=== PATIENT | male | born 1960 | race Caucasian/White ===

== ENCOUNTER 2022-10-19 14:19 | Inpatient (IN) ==
--- NOTE | 2022-10-19 15:56 | Emergency Department Note ---
Impression & Plan Infarction of kidney, Hernia, umbilical ED Provider Note NAME: GREGORIO MCGRATH AGE: 62 SEX: M : 1960 ARRIVES VIA: Walk-In INFORMANT: Patient, ED PROVIDER(S): Jeronimo Howard DO CHIEF COMPLAINT: Hernia HPI: The patient is a 62-year-old male who presented to the emergency department for evaluation of an umbilical hernia. The patient's had an umbilical hernia for approximately 6 months. This has been followed by his primary care physician. He was seen today for a routine diabetic visit. He was noted to have more pain than usual over his umbilical hernia. He was sent to the emergency department for imaging and possible referral to a surgeon. The patient denies having any fever nausea or vomiting. ROS: See above HPI for pertinent positives & negatives. A total of 10 systems reviewed and were otherwise negative. PAST MEDICAL HISTORY: See Below PAST SURGICAL HISTORY: See Below FAMILY HISTORY: See Below SOCIAL HISTORY: See Below HOME MEDICATIONS: See Below ALLERGIES: See Below VITALS: See Below PHYSICAL EXAMINATION: GENERAL: Patient is awake alert in no acute distress patient is resting comfortably and showing no signs of anxiety EYES: The conjunctivae are clear. The pupils are round and reactive. EARS, NOSE, MOUTH AND THROAT: The nose is without any evidence of any deformity. Mucous membranes are moist. Tongue is midline. NECK: The neck is nontender and supple. RESPIRATORY: Normal respiratory effort is noted there is no evidence of wheezing rhonchi or rales CARDIOVASCULAR: Regular rate and rhythm noted there no murmurs rubs or gallops normal S1 normal S2. GASTROINTESTINAL: The abdomen is distended. There is an umbilical hernia noted to palpation. It is easily reducible. There is no erythema overlying or incarceration to my palpation. MUSCULOSKELETAL/EXTREMITIES: There is no evidence of gross deformity full range of motion is noted in the hips and shoulders. SKIN: There is no obvious evidence of any rash. There are no petechiae, pallor or cyanosis noted. NEUROLOGIC: Patient is awake alert and oriented x3. MEDICAL DECISION MAKING: The patient is a 62-year-old male who presented to the emergency department at the request of his primary care physician for an evaluation of an ongoing umbilical hernia. The patient did not have any signs of obstruction or incarceration. The patient was sent specifically for a CAT scan. CAT scan was obtained which did appear to be consistent with a possible renal infarct. For this reason I discussed his case with nephrology who was concerned and recommended that the patient stay for further inpatient work-up to determine if there is no embolic source causing the renal infarction. The patient was agreeable this plan. I discussed his condition with the on-call [facility]. They have agreed to evaluate the patient in the emergency department. The patient was started on heparin. Triage Nursing notes reviewed. Prior medical records reviewed Vital Signs: reviewed and remarkable for no significant abnormalities Differential diagnosis: Etiologies such as appendicitis, diverticulitis, obstruction, inflammatory bowel disease, renal colic, PUD, biliary pathology, pancreatitis, mesenteric ischemia, aortic pathology, infections, genitourinary, UTI, perforated viscus, as well as others were entertained. ER treatment provided: See below Diagnostics interpreted by me: ECG: EKG was obtained in the emergency department. My interpretation is normal sinus rhythm at 77 bpm. There is no ectopy. There is no acute ST segment abnormalities noted. No previous tracing was available. Cardiac Monitoring: An order was placed for continuous cardiac monitoring. The monitor shows a rate of 72 bpm with sinus rhythm. Laboratory studies: As stated above and show below. Imaging studies: See below. Radiographic imaging was reviewed by myself Consultation(s): I discussed this case with Dr. Lang who is on for nephrology. I discussed this case with Dr. Samaniego who is on-call for the [facility] group. ED COURSE: Procedures: none Critical Care: I have personally spent greater than 45 minutes of critical care time in the direct management of this patient. This includes bedside care, interpretation of diagnostic studies, and testing, discussion with consultants, patient, and family members, and other required patient management activities. This 45 minutes is in excess of all separately billable procedures. Past Med/Surg History Medical History Diabetes Hypertension Social History Smoking Status: Never smoker Feels Safe at Home: Yes Allergies Allergies Allergy/AdvReac Type Severity Reaction Status Date / Time No Known Allergies Allergy Verified 10/19/22 18:25 Home Meds Home Medications Medication Instructions Recorded Confirmed aspirin 81 mg tablet,delayed 81 mg PO DAILY 03/01/23 03/01/23 release atorvastatin 40 mg tablet 40 mg PO HS 10/19/22 10/19/22 cyanocobalamin (vitamin B-12) 1,000 mcg sublingual DAILY 10/19/22 10/19/22 1,000 mcg sublingual tablet empagliflozin 25 mg tablet 25 mg PO DAILY 10/19/22 10/19/22 (Jardiance) furosemide 20 mg tablet 20 mg PO DAILY 10/19/22 10/19/22 glipizide 10 mg tablet, extended 20 mg PO DAILY 10/19/22 10/19/22 release 24 hr linagliptin 5 mg tablet (Tradjenta) 5 mg PO DAILY 10/19/22 10/19/22 lisinopril 20 mg tablet 20 mg PO DAILY 10/19/22 10/19/22 metformin 1,000 mg tablet 1,000 mg PO BID 10/19/22 10/19/22 multivitamin 1 tab PO DAILY 10/19/22 10/19/22 polyethylene glycol 3350 17 17 g PO DAILY PRN Constipation 10/19/22 10/19/22 gram/dose oral powder (Miralax) Results & Data (ED) Vital Signs Vital Signs - 24 hr 10/19/22 14:28 10/19/22 18:51 10/19/22 19:33 Temperature 36.7 C Temperature Source Temporal Artery Scan Pulse Rate 86 86 Pulse Rate [Right] 79 Pulse Rate from SpO2 Sensor Respiratory Rate 20 21 Respiratory Effort / Characteristics Non-Labored Spontaneous Non-Labored Respiratory Depth Normal Normal Respiratory Pattern Regular Regular Blood Pressure 180/91 H Blood Pressure [Right Arm] 146/82 H Blood Pressure Mean 120 Blood Pressure Mean [Right Arm] 103 Pulse Oximetry 92 96 Oxygen Delivery Method Room Air Room Air Sepsis Recent Fever Within 48 Hours No Sepsis New/Unexplained Change in Mental Status No Sepsis Action Taken by Nursing No Action Required 10/19/22 19:32 10/19/22 19:40 10/19/22 19:50 Temperature Temperature Source Pulse Rate 90 78 76 Pulse Rate [Right] Pulse Rate from SpO2 Sensor 89 77 76 Respiratory Rate 25 H 19 19 Respiratory Effort / Characteristics Respiratory Depth Respiratory Pattern Blood Pressure Blood Pressure [Right Arm] Blood Pressure Mean Blood Pressure Mean [Right Arm] Pulse Oximetry 93 93 94 Oxygen Delivery Method Sepsis Recent Fever Within 48 Hours Sepsis New/Unexplained Change in Mental Status Sepsis Action Taken by Nursing 10/19/22 20:00 10/19/22 20:10 10/19/22 20:20 Temperature Temperature Source Pulse Rate 77 69 74 Pulse Rate [Right] Pulse Rate from SpO2 Sensor 78 70 72 Respiratory Rate 23 21 18 Respiratory Effort / Characteristics Respiratory Depth Respiratory Pattern Blood Pressure Blood Pressure [Right Arm] Blood Pressure Mean Blood Pressure Mean [Right Arm] Pulse Oximetry 92 93 89 L Oxygen Delivery Method Sepsis Recent Fever Within 48 Hours Sepsis New/Unexplained Change in Mental Status Sepsis Action Taken by Nursing 10/19/22 20:30 10/19/22 20:40 10/19/22 20:50 Temperature Temperature Source Pulse Rate 76 78 73 Pulse Rate [Right] Pulse Rate from SpO2 Sensor 73 81 73 Respiratory Rate 26 H 17 19 Respiratory Effort / Characteristics Respiratory Depth Respiratory Pattern Blood Pressure Blood Pressure [Right Arm] Blood Pressure Mean Blood Pressure Mean [Right Arm] Pulse Oximetry 92 91 91 Oxygen Delivery Method Sepsis Recent Fever Within 48 Hours Sepsis New/Unexplained Change in Mental Status Sepsis Action Taken by Nursing 10/19/22 21:00 10/19/22 21:10 10/19/22 21:11 Temperature Temperature Source Pulse Rate 78 72 Pulse Rate [Right] Pulse Rate from SpO2 Sensor 82 73 Respiratory Rate 19 21 Respiratory Effort / Characteristics Respiratory Depth Respiratory Pattern Blood Pressure 131/74 Blood Pressure [Right Arm] Blood Pressure Mean 93 Blood Pressure Mean [Right Arm] Pulse Oximetry 93 92 Oxygen Delivery Method Sepsis Recent Fever Within 48 Hours Sepsis New/Unexplained Change in Mental Status Sepsis Action Taken by Nursing 10/19/22 21:11 Temperature Temperature Source Pulse Rate 72 Pulse Rate [Right] Pulse Rate from SpO2 Sensor 71 Respiratory Rate 22 Respiratory Effort / Characteristics Respiratory Depth Respiratory Pattern Blood Pressure Blood Pressure [Right Arm] Blood Pressure Mean Blood Pressure Mean [Right Arm] Pulse Oximetry 89 L Oxygen Delivery Method Sepsis Recent Fever Within 48 Hours Sepsis New/Unexplained Change in Mental Status Sepsis Action Taken by Half-Way Medications Current Medication List: was personally reviewed by me Laboratory Data Attestation: I reviewed the patient's lab results. 10/19/22 14:35 10/19/22 14:35 Lab Results 10/19/22 10/19/22 10/19/22 Range/Units 14:35 14:35 14:35 WBC 10.94 H (4.8-10.8) K/ul RBC 5.19 (4.70-6.10) M/uL Hgb 15.7 (14.0-18.0) g/dl Hct 46.4 (42.0-52.0) % MCV 89.4 (80.0-100.0) fL MCH 30.3 (25.0-34.0) pg MCHC 33.8 (32.0-36.0) g/dL RDW Std Deviation 41.8 (36.4-46.3) fL RDW Coeff of Noy 12.7 (11.5-14.5) % Plt Count 323 (130-400) K/uL MPV 9.8 (9.4-12.4) fL Immature Gran % (Auto) 0.6 % Neut % (Auto) 63.7 % Lymph % (Auto) 19.7 % [place] % (Auto) 11.6 % Eos % (Auto) 3.1 % Baso % (Auto) 1.3 % Neut # (Auto) 6.96 H (1.40-6.50) K/uL Lymph # (Auto) 2.16 (1.2-3.4) K/uL [place] # (Auto) 1.27 H (0.11-0.59) K/uL Eos # (Auto) 0.34 (0-0.50) K/uL Baso # (Auto) 0.14 (0-0.2) K/uL Immature Gran # (Auto) 0.07 (0.01-0.20) K/uL PT Cancelled INR Cancelled APTT Cancelled PTT Ratio Cancelled Sodium 138 (136-145) mmol/L Potassium 4.3 (3.5-5.1) mmol/L Chloride 104 (98-107) mmol/L Carbon Dioxide 26 (21-32) mmol/L Anion Gap 8 (3-11) BUN 13 (6-23) mg/dl Creatinine 0.74 (0.6-1.4) mg/dl Est Cr Clr Drug Dosing 113.2 ml/min Est GFR ( Amer) 113.8 ml/min Est GFR (Non-Af Amer) 98.2 ml/min BUN/Creatinine Ratio 17.6 (10-20) Glucose 104 H (70-99(Fasting)) mg/dl Calcium 9.9 (8.5-10.1) mg/dl Total Bilirubin 0.7 (0.2-1.0) mg/dl AST 17 (13-39) U/L ALT 20 (7-52) U/L Alkaline Phosphatase 49 (34-104) U/L Troponin I High Sens (0-20) pg/ml Total Protein 8.3 (6.0-8.3) gm/dl Albumin 4.7 (3.4-5.0) gm/dl Globulin 3.6 (2.5-4.0) gm/dl Albumin/Globulin Ratio 1.3 (0.9-2) Urine Color Urine Appearance (Clear) Urine pH (4.5-7.5) Ur Specific [place] (1.000-1.030) Urine Protein (Negative) Urine Glucose (UA) (Negative) Urine Ketones (Negative) Urine Blood (Negative) Urine Nitrite (Negative) Urine Bilirubin (Negative) Urine Urobilinogen (Negative) Ur Leukocyte Esterase (Negative) SARS-CoV-2, RNA, NAAT (NEGATIVE) 10/19/22 10/19/22 10/19/22 Range/Units 14:35 18:33 19:30 WBC (4.8-10.8) K/ul RBC (4.70-6.10) M/uL Hgb (14.0-18.0) g/dl Hct (42.0-52.0) % MCV (80.0-100.0) fL MCH (25.0-34.0) pg MCHC (32.0-36.0) g/dL RDW Std Deviation (36.4-46.3) fL RDW Coeff of Noy (11.5-14.5) % Plt Count (130-400) K/uL MPV (9.4-12.4) fL Immature Gran % (Auto) % Neut % (Auto) % Lymph % (Auto) % [place] % (Auto) % Eos % (Auto) % Baso % (Auto) % Neut # (Auto) (1.40-6.50) K/uL Lymph # (Auto) (1.2-3.4) K/uL [place] # (Auto) (0.11-0.59) K/uL Eos # (Auto) (0-0.50) K/uL Baso # (Auto) (0-0.2) K/uL Immature Gran # (Auto) (0.01-0.20) K/uL PT INR APTT PTT Ratio Sodium (136-145) mmol/L Potassium (3.5-5.1) mmol/L Chloride (98-107) mmol/L Carbon Dioxide (21-32) mmol/L Anion Gap (3-11) BUN (6-23) mg/dl Creatinine (0.6-1.4) mg/dl Est Cr Clr Drug Dosing ml/min Est GFR ( Amer) ml/min Est GFR (Non-Af Amer) ml/min BUN/Creatinine Ratio (10-20) Glucose (70-99(Fasting)) mg/dl Calcium (8.5-10.1) mg/dl Total Bilirubin (0.2-1.0) mg/dl AST (13-39) U/L ALT (7-52) U/L Alkaline Phosphatase (34-104) U/L Troponin I High Sens 9.5 (0-20) pg/ml Total Protein (6.0-8.3) gm/dl Albumin (3.4-5.0) gm/dl Globulin (2.5-4.0) gm/dl Albumin/Globulin Ratio (0.9-2) Urine Color Yellow Urine Appearance Clear (Clear) Urine pH 6.5 (4.5-7.5) Ur Specific [place] > 1.045 H (1.000-1.030) Urine Protein Negative (Negative) Urine Glucose (UA) 3+ H (Negative) Urine Ketones Negative (Negative) Urine Blood Negative (Negative) Urine Nitrite Negative (Negative) Urine Bilirubin Negative (Negative) Urine Urobilinogen Negative (Negative) Ur Leukocyte Esterase Negative (Negative) SARS-CoV-2, RNA, NAAT NEGATIVE (NEGATIVE) 10/19/22 Range/Units 20:03 WBC (4.8-10.8) K/ul RBC (4.70-6.10) M/uL Hgb (14.0-18.0) g/dl Hct (42.0-52.0) % MCV (80.0-100.0) fL MCH (25.0-34.0) pg MCHC (32.0-36.0) g/dL RDW Std Deviation (36.4-46.3) fL RDW Coeff of Noy (11.5-14.5) % Plt Count (130-400) K/uL MPV (9.4-12.4) fL Immature Gran % (Auto) % Neut % (Auto) % Lymph % (Auto) % [place] % (Auto) % Eos % (Auto) % Baso % (Auto) % Neut # (Auto) (1.40-6.50) K/uL Lymph # (Auto) (1.2-3.4) K/uL [place] # (Auto) (0.11-0.59) K/uL Eos # (Auto) (0-0.50) K/uL Baso # (Auto) (0-0.2) K/uL Immature Gran # (Auto) (0.01-0.20) K/uL PT 10.9 INR 1.0 APTT 25.2 PTT Ratio 0.9 Sodium (136-145) mmol/L Potassium (3.5-5.1) mmol/L Chloride (98-107) mmol/L Carbon Dioxide (21-32) mmol/L Anion Gap (3-11) BUN (6-23) mg/dl Creatinine (0.6-1.4) mg/dl Est Cr Clr Drug Dosing ml/min Est GFR ( Amer) ml/min Est GFR (Non-Af Amer) ml/min BUN/Creatinine Ratio (10-20) Glucose (70-99(Fasting)) mg/dl Calcium (8.5-10.1) mg/dl Total Bilirubin (0.2-1.0) mg/dl AST (13-39) U/L ALT (7-52) U/L Alkaline Phosphatase (34-104) U/L Troponin I High Sens (0-20) pg/ml Total Protein (6.0-8.3) gm/dl Albumin (3.4-5.0) gm/dl Globulin (2.5-4.0) gm/dl Albumin/Globulin Ratio (0.9-2) Urine Color Urine Appearance (Clear) Urine pH (4.5-7.5) Ur Specific [place] (1.000-1.030) Urine Protein (Negative) Urine Glucose (UA) (Negative) Urine Ketones (Negative) Urine Blood (Negative) Urine Nitrite (Negative) Urine Bilirubin (Negative) Urine Urobilinogen (Negative) Ur Leukocyte Esterase (Negative) SARS-CoV-2, RNA, NAAT (NEGATIVE) Administered Medications Heparin Sodium/Dextrose (Heparin Sodium/Dextrose) 25,000 units in 500 mls @ 28 mls/hr IV .[id number]; Protocol Stop: 11/18/22 19:44 Last Admin: 10/19/22 21:10 Dose: 1,400 units/hr, 28 mls/hr Documented By: BRAYDEN Co-signed By: BANDAR Discontinued Medications Heparin Sodium/Dextrose (Heparin Iv Adult Wt-Based Standard *No* Bolus Protocol) 1 each IV ONE ONE; Protocol Stop: 10/19/22 19:22 Last Admin: 10/19/22 21:03 Dose: Not Given Documented By: BANDAR Ioversol (Optiray 350 100ml) 82 ml IV ONCE ONE Stop: 10/19/22 17:53 Last Admin: 10/19/22 17:55 Dose: 82 ml Documented By: ILSA Imaging Data Attestation: I personally reviewed and interpreted this imaging study as follows: My Impression: CT of the abdomen and pelvis was obtained in the emergency department. My interpretation is no definite obstruction, no free air, final read pending. Radiologist's Impression: Abdomen/Pelvis CT 10/19/22 15:[address] WITH IV CONTRAST CT DOSE: 1555.84 mGy.cm HISTORY: hernia TECHNIQUE: Multiaxial CT images of the abdomen and pelvis were performed following the use of intravenous contrast. A dose lowering technique was utilized adhering to the principles of ALARA. COMPARISON STUDY: None. FINDINGS: The lung bases are essentially clear. No pneumoperitoneum. No pneumatosis. 1.5 cm sclerotic focus within the left iliac bone. This is indeterminate but may represent a bone island. Old, healed left posterior rib fractures. There is a moderate-sized fat-containing umbilical hernia. The hernia sac measures 4.9 cm. The hernia neck measures 3.7 cm. The bladder is unremarkable. The prostate gland is mildly enlarged. Cholelithiasis. No gallbladder wall thickening. The main portal vein is patent. No hepatic masses. Calcification along the periphery of the spleen which may represent old postoperative change. Embolization coils noted. The pancreatic tail. The adrenal glands are unremarkable. The pancreas enhances normally. An IVC filter appears in good position. There are few bilateral renal hypodense lesions with the largest on the left measuring 4 cm. This favors a cyst. Subtle wedge-shaped area of hypoenhancement within the lower pole of the right kidney on image 246. This could represent an area of pyelonephritis or developing renal infarct. The renal arteries and veins appear patent. Normal caliber abdominal aorta. No retroperitoneal lymphadenopathy. No pelvic lymphadenopathy or pelvic free fluid. No bowel wall thickening or obstruction. Normal appendix. IMPRESSION: 1. Moderate size fat-containing umbilical hernia. 2. A subtle wedge-shaped area of hypoenhancement within the lower pole of the right kidney. This could represent a focal area of pyelonephritis versus a developing renal infarct. Recommend correlation with urinalysis. 3. A 1.5 cm indeterminate sclerotic focus within the left iliac bone. This may represent a bone island. 4. Cholelithiasis. 5. Additional findings as described above. ACT 112: Negative or not required by law. Electronically signed by: Gadiel Roman M.D. 10/19/2022 6:11 PM Discharge Plan Visit Data Chief Complaint: Illness Stated Complaint: EMERGENCY ULTRA SOUND, REF BY DOC ED Provider: Jeronimo Howard Discharge Problem: Infarction of kidney, Hernia, umbilical Patient Disposition: Being Evaluated by Hospitalist Prescriptions Prescriptions: No Action multivitamin Tablet 1 tab PO DAILY atorvastatin 40 mg tablet 40 mg PO HS glipizide 10 mg tablet extended release 24hr 20 mg PO DAILY lisinopril 20 mg tablet 20 mg PO DAILY aspirin 81 mg Tablet,Delayed Release (Dr/Ec) 81 mg PO DAILY metformin 1,000 mg tablet 1,000 mg PO BID cyanocobalamin (vitamin B-12) [Vitamin B-12] 1,000 mcg Tablet, Sublingual 1,000 mcg SUBLINGUAL DAILY furosemide 20 mg tablet 20 mg PO DAILY polyethylene glycol 3350 [Miralax] 17 gram/dose Powder 17 g PO DAILY PRN (Reason: Constipation) Tradjenta 5 mg tablet 5 mg PO DAILY Jardiance 25 mg tablet 25 mg PO DAILY
[2022-10-19 16:02] LABS: Basophils # (auto) 0.14 K/uL (0-0.2); Basophils % (auto) 1.3 %; Eosinophils # (auto) 0.34 K/uL (0-0.50); Eosinophils % (auto) 3.1 %; Hematocrit (blood only) 46.4 % (42.0-52.0); Hemoglobin 15.7 g/dl (14.0-18.0); Immature Granulocytes # (auto) 0.07 K/uL (0.01-0.20); Immature Granulocytes % (auto) 0.6 %; Lymphocytes # (auto) 2.16 K/uL (1.2-3.4); Lymphocytes % (auto) 19.7 %; Mean Corpuscular Hemoglobin 30.3 pg (25.0-34.0); Mean Corpuscular Hgb Conc 33.8 g/dL (32.0-36.0); Mean Corpuscular Volume 89.4 fL (80.0-100.0); Mean Platelet Volume 9.8 fL (9.4-12.4); Monocytes # (auto) 1.27 K/uL (0.11-0.59); Monocytes % (auto) 11.6 %; Neutrophils # (auto) 6.96 K/uL (1.40-6.50); Neutrophils % (auto) 63.7 %; Platelet Count 323 K/uL (130-400); RDW Coefficient of Variation 12.7 % (11.5-14.5); RDW Standard Deviation 41.8 fL (36.4-46.3); Red Blood Count 5.19 M/uL (4.70-6.10); White Blood Count 10.94 K/ul (4.8-10.8)
[2022-10-19 17:36] LABS: Albumin Level 4.7 gm/dl (3.4-5.0); Bilirubin,Total 0.7 mg/dl (0.2-1.0); Calcium 9.9 mg/dl (8.5-10.1); Potassium 4.3 mmol/L (3.5-5.1)
[2022-10-19 17:41] LABS: Albumin Globulin Ratio 1.3 (0.9-2); BUN Creatinine Ratio 17.6 (10-20); Creatinine Clr Calc Pharmacy 113.2 ml/min; Est GFR (African American) 113.8 ml/min; Est GFR (Non-African American) 98.2 ml/min; Globulin 3.6 gm/dl (2.5-4.0); Total Protein 8.3 gm/dl (6.0-8.3)
[2022-10-19] MEDS ORDERED: OPTIRAY 350 100ml IV ONE (17:52)
--- NOTE | 2022-10-19 18:13 | CT Scan Report ---
ABDOMEN AND PELVIS CT WITH IV CONTRAST CT DOSE: 1555.84 mGy.cm HISTORY: hernia TECHNIQUE: Multiaxial CT images of the abdomen and pelvis were performed following the use of intrave nous contrast. A dose lowering technique was utilized adhering to the principles of ALARA. COMPARISON STUDY: None. FINDINGS: The lung bases are essentially clear. No pneumoperitoneum. No pneumatosis. 1.5 cm sclerotic focus within the left iliac bone. This is indeterminate but may represent a bone island. Old, healed left posterior rib fractures. There is a moderate-sized fat-containing umbilical hernia. The hernia sac measures 4.9 cm. The hernia neck measures 3.7 cm. The bladder is unremarkable. The prostate gland is mildly enlarged. Cholelithiasis. No gallbladder wall thickening. The main portal vein is patent. No hepatic masses. Calcification along the periphery of the spleen which may represent old postoperat petr change. Embolization coils noted. The pancreatic tail. The adrenal glands are unremarkable. The p ancreas enhances normally. An IVC filter appears in good position. There are few bilateral renal hypo dense lesions with the largest on the left measuring 4 cm. This favors a cyst. Subtle wedge-shaped ar ea of hypoenhancement within the lower pole of the right kidney on image 246. This could represent an area of pyelonephritis or developing renal infarct. The renal arteries and veins appear patent. Norm al caliber abdominal aorta. No retroperitoneal lymphadenopathy. No pelvic lymphadenopathy or pelvic f ree fluid. No bowel wall thickening or obstruction. Normal appendix. IMPRESSION: 1. Moderate size fat-containing umbilical hernia. 2. A subtle wedge-shaped area of hypoenhancement within the lower pole of the right kidney. This coul d represent a focal area of pyelonephritis versus a developing renal infarct. Recommend correlation w ith urinalysis. 3. A 1.5 cm indeterminate sclerotic focus within the left iliac bone. This may represent a bone islan d. 4. Cholelithiasis. 5. Additional findings as described above. ACT 112: Negative or not required by law. Electronically signed by: Gadiel Roman M.D. 10/19/2022 6:11 PM
[2022-10-19 19:09] LABS: Appearance Urine Clear (Clear); Bilirubin Urine Negative (Negative); Blood Urine Negative (Negative); Color Urine Yellow; Glucose Urine UA 3+ (Negative); Ketones Urine Negative (Negative); Leukocyte Esterase Urine Negative (Negative); Nitrite Urine Negative (Negative); Protein Urine Negative (Negative); Specific Gravity Urine > 1.045 (1.000-1.030); Urobilinogen Urine Negative (Negative); pH Urine 6.5 (4.5-7.5)
[2022-10-19] MEDS ORDERED: Heparin IV Adult Wt-Based Standard *NO* Bolus Protocol IV ONE (19:21)
[2022-10-19 21:04] LABS: Partial Thromboplastin Ratio 0.9; Partial Thromboplastin Time 25.2 Seconds (21.0-31.0); Prothrombin Time 10.9 Seconds (9.0-12.0)
[2022-10-19] MEDS: HEPARIN SODIUM/DEXTROSE 25,000 UNITS/500 ML BAG IV SCH (21:10)
--- NOTE | 2022-10-19 21:52 | History and Physical Report ---
DATE OF ADMISSION: 10/19/2022. CHIEF COMPLAINT: Renal infarct. HISTORY OF PRESENT ILLNESS: A 62-year-old male with past medical history significant type 2 diabetes, gout, hyperlipidemia, hypertension, morbid obesity, vitamin B12 deficiency, history of herpes zoster without complication. Was sent in by primary doctor because of umbilical hernia. The patient has some pain around the umbilical region and the was sent to Er .CAT scan was done in the ER, is showing possible developing right lower pole renal infarct. Nephrology was notified and recommended to keep him in the hospital and start on heparin and get echocardiogram. Currently, the patient denies any flank pain. No hematuria. No chest pain, no shortness of breath, no cough, no headache, no blurred visions, no earache, no runny nose. Afebrile. Appetite is okay. No difficulty swallowing. Normal bowel and bladder movements. Ambulates okay.He says he gets sob on exertion which is chronic and has some chronic cough. Resting comfortably and hemodynamically stable. ALLERGIES: No known drug allergies. PAST MEDICAL HISTORY: As mentioned above. PAST SURGICAL HISTORY: Colonoscopy. MEDICATIONS: The patient is on aspirin 81 mg p.o. daily, atorvastatin 40 mg p.o. at bedtime, vitamin B12 1000 mcg sublingual daily, Jardiance 25 mg p.o. daily., Lasix 20 mg p.o. daily, glipizide 20 mg p.o. daily, Tradjenta 5 mg p.o. daily, lisinopril 20 mg p.o. daily, metformin 1000 mg p.o. b.i.d., multivitamin 1 tablet p.o. daily, MiraLax 17 g p.o. daily p.r.n. FAMILY HISTORY: Significant for no family history on file. SOCIAL HISTORY: , no smoking, no alcohol, no drug use. REVIEW OF SYSTEMS: As per HPI. Rest of the review of systems is negative. PHYSICAL EXAMINATION: GENERAL: The patient is morbidly obese, not in acute distress. VITAL SIGNS: Temperature 36.7, pulse 86, respiratory rate 21, blood pressure 146/82, oxygen 96% on room air. HEENT: Pupils equal, round and reactive to light. Oral mucosa moist. NECK: No JVD, no neck masses. CARDIOVASCULAR: S1 and S2 heard. Regular rate and rhythm. No murmur, no gallop. RESPIRATORY SYSTEM: Normal AP diameter. No accessory muscle use. No wheezing, no crackles. ABDOMEN: Soft, bowel sounds present. Tenderness in periumbilical region. Mild guarding, no rigidity, no distention. CENTRAL NERVOUS SYSTEM: Cranial nerves II through XII grossly intact, nonfocal. EXTREMITIES: No edema, no erythema. LABORATORY DATA: WBC 19.9, hemoglobin 15.7, hematocrit 46.4, platelets 323. Sodium 138, potassium 4.3, chloride 104, bicarbonate 26, BUN 13, creatinine 0.7, serum glucose 104, calcium 9.9, total bilirubin 0.7, AST 17, ALT 20, alkaline phosphatase 49. Troponin I high sensitivity 49.5. Urinalysis, +3 glucose. SARS-CoV-2 rapid test negative. IMAGING DATA: CT abdomen and pelvis with IV contrast, moderate-sized, fat- containing umbilical hernia, a subtle wedge-shaped area of hypoenhancement within the lower pole of the right kidney, this could represent a focal area of pyelonephritis versus a developing renal infarct, a 1.5 cm indeterminate sclerotic focus in the left iliac bone possible bone island, cholelithiasis. EKG: Normal sinus rhythm at a rate of 77, incomplete right bundle-branch block. ASSESSMENT AND PLAN: This is a 62-year-old male who presents with pain around umbilical hernia and found to have a right renal infarct. 1. Right renal infarct: Source unclear, the patient is asymptomatic. Will start on IV heparin. Will follow echocardiogram.Renal duplex. Appreciate nephrology recommendations. Monitor in the hospital. 2. Umbilical hernia: Seems to be not obstructed, having pain. While the patient is in the hospital, will consult Surgery for further recommendations. 3. Diabetes: Hold p.o. medications. Placed on insulin sliding scale. Monitor the blood sugars. Monitor HbA1c level. 4. History of hypertension: Continue his home lisinopril. Will monitor his blood pressure. 5. Hyperlipidemia: On statin. 6. Morbid obesity: Needs counseling. 7. Deep venous thrombosis prophylaxis: On IV heparin. DISPOSITION: Closely monitor in the tele floor. Level 1 full code. Expect to discharge home and follow with family doctor. Job ID: [id number] [facility]
[2022-10-19] MEDS ORDERED: CARBOHYDRATES FOR HYPOGLYCEMIA PO PRN (22:26)
[2022-10-19] MEDS ORDERED: GLUCOSE 10 TAB/TUBE PO PRN (22:26)
[2022-10-19] MEDS ORDERED: ACETAMINOPHEN 325 MG TAB PO PRN (22:26)
[2022-10-19] MEDS ORDERED: POLYETHYLENE (MIRALAX) 17 GM PACK PO PRN ×2 (22:26)
[2022-10-19] MEDS ORDERED: GLUCOSE 40% GEL 15 GM TUBE PO PRN (22:26)
[2022-10-19] MEDS ORDERED: NITROGLYCERIN SL 0.4 MG/TAB TAB SL PRN (22:26)
[2022-10-19] MEDS ORDERED: DEXTROSE 50% 50 ML SYRINGE IV PRN (22:26)
[2022-10-19] MEDS ORDERED: GLUCAGON FOR INJ 1 MG VIAL SQ PRN (22:26)
[2022-10-19] MEDS: INSULIN ASPART PER UNIT SC SCH (23:03)
[2022-10-19] MEDS: ATORVASTATIN 40 MG TAB PO SCH (23:23)
[2022-10-19] MEDS: SODIUM CHLORIDE 0.9% 1000ML 1,000 ML IV SCH (23:24)
--- NOTE | 2022-10-19 23:30 | Surgery Consultation ---
Date of Consultation October 19, 2022 Assessment & Plan (1) Hernia, umbilical: Patient has been admitted on the hospitalist service. Due to the patient's renal infarct she has been initiated on heparin drip. Management of this condition will be deferred to the primary service as well as nephrology Concerning patient's umbilical hernia we recommend the following: At the present time the patient only has pain with palpation of this hernia and he notes that with his daily activities it does not cause him any trouble. On today's CAT scan there is only fat in the hernia and it does not contain any bowel and there is no evidence of bowel obstruction If patient wishes to pursue repair of this hernia that can be done on an elective basis. As noted the patient has been initiated on anticoagulation in the form of heparin drip due to renal infarct. It would be preferable to pursue any hernia repair when he is not on any anticoagulation. History of Present Illness Reason for Consultation: Umbilical hernia Attending Physician: Graham Crump MD History of Present Illness This is a 62-year-old male who was seeing his primary care physician earlier today for routine visit concerning his diabetic care. While he was at the primary care physician's office he was noted to have some tenderness at an umbilical hernia that has been being followed. Because of this the patient's primary care physician sent him to the emergency department for further evaluation. I question the patient about his hernia and he notes that he has had this for years and they are merely following it. He notes that with his routine daily activities it does not cause him any problems. He does note that it does get tender at times with pressure or palpation of it but otherwise does not cause him any troubles. He specifically notes that he is tolerating a diet. He notes he is not having any nausea or vomiting. He denies any fevers, shakes, or chills. He denies any weight loss. He also denies any change in his bowel habits. Since arrival to the emergency department the patient has had labs and imaging which I independently reviewed. CT scan abdomen pelvis showed the patient had a moderate-sized umbilical hernia which contained fat. There did not appear to be any bowel contained within the hernia. The scan also showed the patient had concern for a right renal infarct. Labs include a CBC her white blood cell count was 10.9. Hemoglobin, hematocrit, and platelet count were all normal. Coagulation studies were normal. Chemistry profile showed sodium, potassium, BUN, and creatinine were normal. There is no elevation of patient's LFTs. Urinalysis was not taken of infection. Due to concern for renal infarct nephrology was notified and they recommended that patient be initiated on a heparin drip. General surgery has been asked to see the patient for his umbilical hernia. At the time of my interview the patient was resting comfortably in bed eating a snack. He was in no distress. Allergies Allergy/AdvReac Type Severity Reaction Status Date / Time No Known Allergies Allergy Verified 10/19/22 18:25 Home Medications Medication Instructions Recorded Confirmed Type aspirin 81 mg tablet,delayed 81 mg PO DAILY 10/19/22 10/19/22 History release atorvastatin 40 mg tablet 40 mg PO HS 10/19/22 10/19/22 History cyanocobalamin (vitamin B-12) 1,000 mcg sublingual DAILY 10/19/22 10/19/22 History 1,000 mcg sublingual tablet empagliflozin 25 mg tablet 25 mg PO DAILY 10/19/22 10/19/22 History (Jardiance) furosemide 20 mg tablet 20 mg PO DAILY 10/19/22 10/19/22 History glipizide 10 mg tablet, extended 20 mg PO DAILY 10/19/22 10/19/22 History release 24 hr linagliptin 5 mg tablet (Tradjenta) 5 mg PO DAILY 10/19/22 10/19/22 History lisinopril 20 mg tablet 20 mg PO DAILY 10/19/22 10/19/22 History metformin 1,000 mg tablet 1,000 mg PO BID 10/19/22 10/19/22 History multivitamin 1 tab PO DAILY 10/19/22 10/19/22 History polyethylene glycol 3350 17 17 g PO DAILY PRN Constipation 10/19/22 10/19/22 History gram/dose oral powder (Miralax) Patient History Medical History Diabetes Hypertension Social History Smoking Status: Never smoker Feels Safe at Home: Yes Review of Systems Constitutional: no fever and no chills Eyes: no eye pain Ear, Nose, Mouth, Throat: no ear pain Respiratory: no cough and no dyspnea Cardiovascular: no chest pain Gastrointestinal: + abdominal pain (Tenderness to palpation over his umbilical hernia); no nausea and no vomiting Genitourinary: no dysuria Musculoskeletal: no back pain Integumentary: no rash Neurologic: no localized weakness Physical Exam Constitutional: well developed and well nourished; no acute distress Eyes: Wears glasses ENMT: Ears: no hearing impairment and no external ear abnormality Mouth: no oropharynx abnormality Neck: trachea midline Respiratory: normal respiratory effort; no respiratory distress and no labored breathing Cardiovascular: Rate/Rhythm: regular rate and regular rhythm Gastrointestinal (Abdomen): Patient's abdomen is rotund. There is no rebound tenderness or guarding. Patient was noted to have a palpable umbilical hernia. This area was tender with deep palpation. There are no erythema or skin changes noted around the umbilicus. There are no areas of hard this noted. There are no open areas or areas of drainage. Musculoskeletal: No calf tenderness Skin: no rashes Neurologic: moves all extremities Psychiatric: A+Ox3, euthymic affect Results & Data ([facility]) Vital Signs (Past 12 Hours) Vital Signs Temp Pulse Pulse Resp BP BP Pulse Ox 10/19/22 22:26 75 20 94 10/19/22 22:46 74 10/19/22 22:20 74 19 92 10/19/22 22:10 75 14 93 10/19/22 22:00 73 15 131/74 92 10/19/22 21:50 78 41 H 92 10/19/22 21:40 74 20 92 10/19/22 21:30 75 29 H 89 L 10/19/22 21:20 73 16 91 10/19/22 21:11 72 22 89 L 10/19/22 21:11 131/74 10/19/22 21:10 72 21 92 10/19/22 21:00 78 19 93 10/19/22 20:50 73 19 91 10/19/22 20:40 78 17 91 10/19/22 20:30 76 26 H 92 10/19/22 20:20 74 18 89 L 10/19/22 20:10 69 21 93 10/19/22 20:00 77 23 92 10/19/22 19:50 76 19 94 10/19/22 19:40 78 19 93 10/19/22 19:32 90 25 H 93 10/19/22 19:33 86 10/19/22 18:51 79 21 146/82 H 96 10/19/22 14:28 36.7 C 86 20 180/91 H 92 O2 Del Method 10/19/22 22:26 Room Air 10/19/22 22:46 10/19/22 22:20 10/19/22 22:10 10/19/22 22:00 10/19/22 21:50 10/19/22 21:40 10/19/22 21:30 10/19/22 21:20 10/19/22 21:11 10/19/22 21:11 10/19/22 21:10 10/19/22 21:00 10/19/22 20:50 10/19/22 20:40 10/19/22 20:30 10/19/22 20:20 10/19/22 20:10 10/19/22 20:00 10/19/22 19:50 10/19/22 19:40 10/19/22 19:32 10/19/22 19:33 10/19/22 18:51 Room Air 10/19/22 14:28 Room Air PG Care Time/CCT Total # of Minutes Spent Total Time Spent with Patient: Total time spent is greater than 50% in coordination of care (as documented) at patient's floor/unit and/or counseling patient: Coding Level of Care Code 30999 IN/OBS CONSULT LVL 5,80M Diagnoses Hernia, umbilical K42.9 Obstruction and gangrene presence: without obstruction or gangrene (1) Hernia, umbilical Obstruction and gangrene presence: without obstruction or gangrene Qualified Code(s): K42.9 - Umbilical hernia without obstruction or gangrene
[2022-10-20 03:41] LABS: Basophils # (auto) 0.13 K/uL (0-0.2); Eosinophils # (auto) 0.27 K/uL (0-0.50); Eosinophils % (auto) 2.1 %; Hematocrit (blood only) 46.8 % (42.0-52.0); Hemoglobin 16.3 g/dl (14.0-18.0); Immature Granulocytes # (auto) 0.08 K/uL (0.01-0.20); Immature Granulocytes % (auto) 0.6 %; Lymphocytes # (auto) 2.12 K/uL (1.2-3.4); Lymphocytes % (auto) 16.8 %; Mean Corpuscular Hemoglobin 30.8 pg (25.0-34.0); Mean Corpuscular Hgb Conc 34.8 g/dL (32.0-36.0); Mean Corpuscular Volume 88.5 fL (80.0-100.0); Mean Platelet Volume 9.4 fL (9.4-12.4); Monocytes # (auto) 1.36 K/uL (0.11-0.59); Monocytes % (auto) 10.8 %; Neutrophils # (auto) 8.68 K/uL (1.40-6.50); Neutrophils % (auto) 68.7 %; Platelet Count 308 K/uL (130-400); RDW Coefficient of Variation 12.8 % (11.5-14.5); RDW Standard Deviation 41.6 fL (36.4-46.3); Red Blood Count 5.29 M/uL (4.70-6.10); White Blood Count 12.64 K/ul (4.8-10.8)
[2022-10-20 03:55] LABS: BUN Creatinine Ratio 22.5 (10-20); Calcium 9.5 mg/dl (8.5-10.1); Est GFR (African American) 115.7 ml/min; Est GFR (Non-African American) 99.9 ml/min; Magnesium 2.3 mg/dl (1.7-2.4); Potassium 4.1 mmol/L (3.5-5.1)
[2022-10-20 04:05] LABS: Partial Thromboplastin Ratio 1.1; Partial Thromboplastin Time 31.3 Seconds (21.0-31.0)
[2022-10-20] MEDS ORDERED: HEPARIN SOD (PORCINE) 1000 UNIT/ML ONE ×2 (04:37→13:01)
[2022-10-20] MEDS ORDERED: HEPARIN SOD (PORCINE) 1000 UNIT/ML IV ONE (04:59)
[2022-10-20 06:23] LABS: Estimated Average Glucose 148 mg/dl; Hemoglobin A1C 6.8 % (4.5-5.6)
--- NOTE | 2022-10-20 08:37 | Surgery Progress Note ---
Date of Service October 20, 2022 Assessment & Plan (1) Hernia, umbilical: Plan: Pt sent over from PCP office with tender umbilical hernia CT scan obtained showed evidence of a fat containing umbilical hernia There is no evidence of bowel incarceration via CT scan. He is having no obstructive symptoms. Tolerates diet, + bowel function On exam umbilical region does have some discomfort to palpation. denies pain at rest. no skin changes Also found to have evidence of ?renal infarct on CT scan as well and was started on heparin for this No acute urgency to fixing hernia at this time, may follow up for elective repair if he wishes once recovered from acute issues and can coordinate with holding anticoagulation etc. Admission and Anticipated Discharge Date Admission Date: October 19, 2022 Supervising Physician Co-Signing Physician Notes Patient seen and examined, agree with above. Referred by primary doctor for t enderness to palpation around his umbilical hernia. He states this is always the way it is. No significant changes. He had a CT scan which showed a possible incidental renal infarct and was admitted to medicine and started on heparin. Surgery was consulted to evaluate his hernia. On exam he is afebrile with stable vitals. His abdomen is soft, minimally tender to palpation around his umbilical hernia. He was standing during the exam but it could likely reduce. I personally reviewed and interpreted CT scan and agree with the assessment of fat-containing umbilical hernia. No surgical intervention indicated at this time He may follow-up with clinic if he desires repair Surgery will sign off Subjective Patient denies any pain at umbilicus unless it is palpated upon. Denies nausea/vomiting. Tolerates diet without issues. Has + bowel function. Physical Exam Physical Exam: awake/alert, no distress Respiratory: normal respiratory effort Gastrointestinal (Abdomen): Percussion/Palpation: + abdomen tender (discomfort to palpation to umbilical hernia), abdomen soft and + hernia (umbilical); abdomen not firm no skin changes to umbilical region. obese abdomen Results & Data ([facility]) Vital Signs (Past 12 Hours) Vital Signs Pulse Resp BP Pulse Ox O2 Del Method O2 Flow Rate 10/20/22 08:00 80 15 151/76 H 94 Room Air 10/20/22 07:30 79 21 93 Room Air 10/20/22 07:30 68 10/20/22 05:30 70 19 95 10/20/22 05:20 72 20 95 10/20/22 05:10 71 24 90 10/20/22 05:00 72 18 91 10/20/22 04:50 76 90 10/20/22 04:40 74 20 92 10/20/22 04:30 76 92 10/20/22 04:20 73 21 92 Nasal Cannula 2 10/20/22 04:10 73 89 L Room Air 10/20/22 04:00 74 91 10/20/22 04:00 155/81 H 10/20/22 03:50 76 16 93 10/20/22 03:40 73 19 91 10/20/22 03:30 71 20 90 10/20/22 03:20 77 19 92 10/20/22 03:10 73 17 92 10/20/22 03:00 78 22 10/20/22 02:50 80 20 91 10/20/22 02:40 82 23 91 10/20/22 02:30 78 17 92 10/20/22 03:04 77 18 90 Room Air 10/20/22 02:20 80 23 92 10/20/22 02:10 79 36 H 92 10/20/22 02:00 85 22 92 10/20/22 02:00 157/98 H 10/20/22 01:56 94 10/20/22 01:40 78 25 H 91 10/20/22 01:30 79 16 92 10/20/22 01:30 141/77 H 10/20/22 01:20 80 23 92 10/20/22 01:10 87 17 90 10/20/22 01:00 77 23 92 10/20/22 01:00 127/68 10/20/22 00:50 77 26 H 91 10/20/22 00:40 85 23 93 10/20/22 00:30 81 31 H 92 10/20/22 00:30 132/83 10/20/22 00:20 76 13 91 10/20/22 00:10 79 20 91 10/20/22 00:00 73 14 92 10/20/22 00:00 132/89 10/19/22 23:50 76 20 92 10/19/22 23:40 74 13 92 10/19/22 23:30 79 22 93 10/19/22 23:30 150/90 H 10/19/22 23:20 32 L 93 10/19/22 23:10 94 H 19 90 10/19/22 23:00 72 22 91 10/19/22 23:00 120/77 10/19/22 22:50 74 24 92 10/19/22 22:40 73 19 91 10/19/22 22:30 72 22 91 10/19/22 22:30 134/70 10/19/22 22:24 142/74 H 10/19/22 22:24 77 21 92 10/19/22 22:26 75 20 94 Room Air 10/19/22 22:46 74 10/19/22 22:20 74 19 92 10/19/22 22:10 75 14 93 10/19/22 22:00 73 15 131/74 92 10/19/22 21:50 78 41 H 92 10/19/22 21:40 74 20 92 10/19/22 21:30 75 29 H 89 L 10/19/22 21:20 73 16 91 10/19/22 21:11 72 22 89 L 10/19/22 21:11 131/74 10/19/22 21:10 72 21 92 10/19/22 21:00 78 19 93 10/19/22 20:50 73 19 91 10/19/22 20:40 78 17 91 PG Care Time/CCT Total # of Minutes Spent Total Time Spent with Patient: Total time spent is greater than 50% in coordination of care (as documented) at patient's floor/unit and/or counseling patient: Coding Level of Care Code 69895 SUB INP/OBS CARE 09/14MIN Diagnoses Hernia, umbilical K42.9 Obstruction and gangrene presence: without obstruction or gangrene (1) Hernia, umbilical Obstruction and gangrene presence: without obstruction or gangrene Qualified Code(s): K42.9 - Umbilical hernia without obstruction or gangrene
--- NOTE | 2022-10-20 08:38 | Ultrasound Report ---
US duplex renal artery CLINICAL HISTORY: Renal infarct. COMPARISON STUDY: CT of the abdomen and pelvis October 19, 2022. TECHNIQUE: Color and duplex Doppler sonography of the renal arteries and abdominal aorta was brii vega. FINDINGS: This exam is compromised by suboptimal degeneration. Peak systolic velocity within the abdo jaye aorta was 100 cm/s. The right kidney measures 11.1 cm and the left measures 11.7 cm per there i s no hydronephrosis. The ill-defined hypodense focus within the lower pole of the right kidney on CT is not evident by sonography. Left renal cyst is noted. There is no hydronephrosis. Bilateral renal a rteries and veins were patent. No elevated velocities were identified within the renal arteries. Peak systolic velocity within the left renal artery was 85 cm/s. Peak systolic velocity within the right renal artery was 90 cm/s. Hepatic steatosis is incidentally noted. IMPRESSION: Exam mildly compromised by suboptimal penetration. However, no sonographic evidence for renal artery stenosis. ACT 112: Negative or not required by law. Electronically signed by: Yovani Rodríguez M.D. 10/20/2022 8:36 AM
[2022-10-20] MEDS: CYANOCOBALAMIN (B-12) 500 MCG TABLET PO SCH (08:47)
[2022-10-20] MEDS: MULTIVITAMIN TAB PO SCH ×2 (08:47→08:55)
[2022-10-20] MEDS: ASPIRIN 81 MG ECTAB PO SCH (08:48)
[2022-10-20] MEDS: INSULIN ASPART PER UNIT SC SCH ×4 (08:49→21:13)
[2022-10-20] MEDS ORDERED: lisinopril 20 MG TAB PO SCH (09:00)
[2022-10-20] MEDS ORDERED: FUROSEMIDE 20 MG TAB PO SCH (09:00)
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
[2022-10-20] MEDS ORDERED: SODIUM CHLORIDE 0.45 % 1,000 ML IV STA (11:26)
[2022-10-20] MEDS: hydrALAZINE 10 MG TAB PO SCH ×3 (12:25→21:13)
--- NOTE | 2022-10-20 12:36 | Ultrasound Report ---
BILATERAL LOWER EXTREMITY VENOUS DOPPLER HISTORY: Leg edema, Rule out DVT COMPARISON STUDY: None. FINDINGS: There is normal compressibility, flow, and augmentation within the bilateral lower extremit y deep venous systems. IMPRESSION: No DVT within the right or left lower extremity. ACT 112: Negative or not required by law. Electronically signed by: Gadiel Roman M.D. 10/20/2022 12:34 PM
[2022-10-20 12:42] LABS: Partial Thromboplastin Ratio 1.2; Partial Thromboplastin Time 33.6 Seconds (21.0-31.0)
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
[2022-10-20] MEDS: HEPARIN SODIUM/DEXTROSE 25,000 UNITS/500 ML BAG IV SCH ×2 (13:06→16:43)
[2022-10-20 13:35] LABS: Stomatocytes 2+
[2022-10-20] MEDS: SODIUM CHLORIDE 0.9% 1000ML 1,000 ML IV SCH (14:16)
[2022-10-20 19:50] LABS: Partial Thromboplastin Ratio 1.5
[2022-10-20] MEDS: ATORVASTATIN 40 MG TAB PO SCH (21:13)
[2022-10-21] MEDS: HEPARIN SODIUM/DEXTROSE 25,000 UNITS/500 ML BAG IV SCH ×2 (02:23→03:54)
[2022-10-21 02:50] LABS: Hematocrit (blood only) 43.8 % (42.0-52.0); Hemoglobin 14.9 g/dl (14.0-18.0); Mean Corpuscular Hemoglobin 30.4 pg (25.0-34.0); Mean Corpuscular Volume 89.4 fL (80.0-100.0); Mean Platelet Volume 9.4 fL (9.4-12.4); Platelet Count 301 K/uL (130-400); RDW Coefficient of Variation 12.9 % (11.5-14.5); RDW Standard Deviation 42.1 fL (36.4-46.3); White Blood Count 12.49 K/ul (4.8-10.8)
[2022-10-21 03:02] LABS: BUN Creatinine Ratio 26.1 (10-20); Creatinine Clr Calc Pharmacy 95.2 ml/min; Est GFR (Non-African American) 91.4 ml/min; Magnesium 2.3 mg/dl (1.7-2.4)
[2022-10-21 03:31] LABS: Partial Thromboplastin Ratio 1.9
[2022-10-21 03:33] LABS: Partial Thromboplastin Time 51.3 Seconds (21.0-31.0)
--- NOTE | 2022-10-21 04:38 | Electrocardiogram Report ---
Test Reason : Blood Pressure : / mmHG Vent. Rate : 077 BPM Atrial Rate : 077 BPM P-R Int : 190 ms QRS Dur : 098 ms QT Int : 392 ms P-R-T Axes : 041 020 041 degrees QTc Int : 443 ms Normal sinus rhythm Low voltage QRS Incomplete right bundle branch block Cannot rule out Anterior infarct , age undetermined Abnormal ECG No previous ECGs available Confirmed by Marcos Humphrey ([id number]) on 10/21/2022 4:38:53 AM Referred By: Danny Jung Confirmed By:Marcos Humphrey
[2022-10-21] MEDS: hydrALAZINE 10 MG TAB PO SCH ×2 (08:58→12:12)
[2022-10-21] MEDS: MULTIVITAMIN TAB PO SCH (08:59)
[2022-10-21] MEDS: CYANOCOBALAMIN (B-12) 500 MCG TABLET PO SCH (08:59)
[2022-10-21] MEDS: INSULIN ASPART PER UNIT SC SCH ×2 (08:59→11:45)
[2022-10-21] MEDS: ASPIRIN 81 MG ECTAB PO SCH (08:59)
[2022-10-21] MEDS ORDERED: OPTIRAY 320 500ml IV ONE (11:11)
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
--- NOTE | 2022-10-21 11:36 | CT Scan Report ---
CT ANGIOGRAPHY OF THE ABDOMEN CLINICAL HISTORY: Renal infarct on prior CT. COMPARISON STUDY: CT of the abdomen and pelvis January 20, 2004 and October 19, 2022. Doppler renal ultraso und October 20, 2022. TECHNIQUE: Arterial phase images of the abdomen were obtained following intravenous injection of 120 cc of Optiray 320 IV. Sagittal and coronal reconstructions were viewed as well as maximal intensity p rojections on an independent 3-D workstation. Automated exposure control was utilized for the study. A dose lowering technique was utilized adhering to the principles of ALARA. FINDINGS: Groundglass opacities with mosaic attenuation within the lower lungs favor atelectasis. Air -trapping could appear similar. Old left-sided rib fractures are noted. Embolization coils within the splenic artery are noted. There are old posttraumatic/postsurgical findings within the spleen which is small. No pneumatosis, free air or portal venous gas is present. Gallstones within the gallbladder are noted. There is no biliary or pancreatic ductal dilatation. Arterial phase images of the liver, adrenal glands and pancreas are unremarkable. IVC filter is in place. There is a left renal cyst. A 1 cm hypodense lesion within the lower pole of the right kidney also likely reflects a cyst. A subtle wedge-shaped hypodensity within the lower pole of the right kidney is again noted. This measures appr oximately 2.4 cm. This was shown on CT of October 19, 2022. Conspicuity has slightly decreased although this could be due to to differences in phase of enhancement. This was not evident on earlier CT of 2013. The caliber of the abdominal aorta is normal. The celiac axis, superior mesenteric artery and inferior mesenteric artery are patent. The bilateral renal arteries are patent. No dissection wi thin the renal arteries. There is no aneurysm. Segmental vessels within the kidneys are suboptimally assessed due to artifact. However, no definite vessel occlusion is identified. IMPRESSION: 1. Redemonstration of a subtle wedge-shaped hypodensity within the lower pole of the right kidney. Th is remains nonspecific and could reflect a small age indeterminate infarct or pyelonephritis. 2. Patent renal arteries. No dissection or stenosis identified. Segmental vessels suboptimally assess ed due to artifact but no vessel occlusion identified. 3. Cholelithiasis. ACT 112: Negative or not required by law. Electronically signed by: Yovani Rodríguez M.D. 10/21/2022 11:34 AM
--- NOTE | 2022-10-21 13:22 | Hospitalist Progress Note ---
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 A subtle wedge-shaped area of hypoenhancement within the lower pole of the right kidney. This could represent a focal area of pyelonephritis versus a developing renal infarct. Recommend correlation with urinalysis. A 1.5 cm indeterminate sclerotic focus within the left iliac bone. This may represent a bone island. Cholelithiasis. -- Renal artery duplex:Exam mildly compromised by suboptimal penetration. H owever, no sonographic evidence for renal artery stenosis. --Venous Doppler:No DVT within the right or left lower extremity. --ECHO: Grossly normal valvular structure and function. Left ventricle is normal in size. Left ventricle systolic function is normal. EF 60 to 65%. Right ventricle systolic pressure is normal. Left atrial size is normal. Right atrial size is normal --Abd CTA: Redemonstration of a subtle wedge-shaped hypodensity within the lower pole of the right kidney. This remains nonspecific and could reflect a small age indeterminate infarct or pyelonephritis. Patent renal arteries. No dissection or stenosis identified. Segmental vessels suboptimally assessed due to artifact but no vessel occlusion identified. Cholelithiasis. --Fairly normal ESR, normal LDH ---Peripheral smear is remarkable for neutrophilia and monocytosis with reactive features. No evidence of dysplasia or hematolymphoid process is seen. No schistocytes are noted. -- Urine analysis not suggestive of UTI --Patient denies any hematuria, dysuria, fever, chills -- Discussed with radiologist today: No similar lesion noted on CT abdomen from 2003. -- Could not obtain CT from [facility](Called multiple [facility] sites-unable to obtain). Patient unaware of going to [facility] --Appreciate nephrology input --IV heparin discontinued (Discussed with Nephrology on 10/21/22) --Continue aspirin 81 mg daily --Needs hypercoagulable work-up and follow-up with hematology as outpatient given H/O IVC filter and currently not on any anticoagulation --Needs follow up with Nephrology upon discharge Umbilical hernia: -- CT abdomen as above Currently asymptomatic Appreciate surgery input Will need follow-up with surgery upon discharge for elective umbilical hernia repair Cholelithiasis Incidental finding on CT Follow-up with surgery as outpatient DM II HbA1c 6.8 Hold p.o. medications Continue insulin while hospitalized Monitor BGs Hypertension: Lisinopril, Lasix on hold Hydralazine as per nephrology Monitor BP Hyperlipidemia: On statin. Morbid obesity: Needs counseling BMI 45 DVT Px: On IV heparin. CODE STATUS Full code Disposition Home Admission and Anticipated Discharge Date Admission Date: October 19, 2022 Subjective Patient is seen and examined at bedside No new complaints On IV heparin Discussed with radiologist and project intern today Denies any abdominal pain, nausea, vomiting, chest pain, dyspnea, Hematuria Had Abd CTA today Review of Systems Review of Systems: All systems reviewed & are unremarkable except as noted in Subjective Physical Exam Physical Exam: Physical Exam: Vitals signs as noted above General Appearance:Morbidly Obese, no apparent distress Head: normocephalic, Atraumatic Eyes: normal inspection, EOMI Neck: supple, Trachea midline Respiratory/Chest: Decreased breath sounds, CTA, No accessory muscle use Cardiovascular: S1, S2, No murmur Abdomen/GI:Soft, Non tender, +Umbilical Hernia, Bowel sounds present Extremities/Musculoskeletal:normal inspection, 1+ B/L LE edema Neurologic/Psych:AAOX3, grossly no focal neurological deficits Skin: normal color, warm Results & Data Results & Data ([facility]) Vital Signs (Past 12 Hours) Vital Signs Temp Pulse Resp BP BP Pulse Ox O2 Del Method 10/21/22 11:41 36.5 C 59 L 16 176/74 H 93 Room Air 10/21/22 07:51 36.5 C 70 14 161/83 H 96 Room Air 10/21/22 03:55 36.8 C 59 L 18 136/76 95 Room Air Laboratory Results Short CBC 10/21/22 Range/Units 02:28 WBC 12.49 H (4.8-10.8) K/ul Hgb 14.9 (14.0-18.0) g/dl Hct 43.8 (42.0-52.0) % Plt Count 301 (130-400) K/uL BMP 10/21/22 02:28 Sodium 137 Potassium 4.0 Chloride 105 Carbon Dioxide 26 BUN 23 Creatinine 0.88 Glucose 167 H Calcium 9.0 (1) Hernia, umbilical Obstruction and gangrene presence: without obstruction or gangrene Qualified Code(s): K42.9 - Umbilical hernia without obstruction or gangrene
--- NOTE | 2022-10-21 13:38 | Discharge Summary ---
Date of Service October 21, 2022 Admission HPI Per Admitting Provider CHIEF COMPLAINT: Renal infarct. HISTORY OF PRESENT ILLNESS: A 62-year-old male with past medical history significant type 2 diabetes, gout, hyperlipidemia, hypertension, morbid obesity, vitamin B12 deficiency, history of herpes zoster without complication. Was sent in by primary doctor because of umbilical hernia. The patient has some pain around the umbilical region and the was sent to Er .CAT scan was done in the ER, is showing possible developing right lower pole renal infarct. Nephrology was notified and recommended to keep him in the hospital and start on heparin and get echocardiogram. Currently, the patient denies any flank pain. No hematuria. No chest pain, no shortness of breath, no cough, no headache, no blurred visions, no earache, no runny nose. Afebrile. Appetite is okay. No difficulty swallowing. Normal bowel and bladder movements. Ambulates okay.He says he gets sob on exertion which is chronic and has some chronic cough. Resting comfortably and hemodynamically stable. Admission Exam Per Admitting Provider PHYSICAL EXAMINATION: GENERAL: The patient is morbidly obese, not in acute distress. VITAL SIGNS: Temperature 36.7, pulse 86, respiratory rate 21, blood pressure 146/82, oxygen 96% on room air. HEENT: Pupils equal, round and reactive to light. Oral mucosa moist. NECK: No JVD, no neck masses. CARDIOVASCULAR: S1 and S2 heard. Regular rate and rhythm. No murmur, no gallop. RESPIRATORY SYSTEM: Normal AP diameter. No accessory muscle use. No wheezing, no crackles. ABDOMEN: Soft, bowel sounds present. Tenderness in periumbilical region. Mild guarding, no rigidity, no distention. CENTRAL NERVOUS SYSTEM: Cranial nerves II through XII grossly intact, nonfocal. EXTREMITIES: No edema, no erythema. Principal Diagnosis Suspected right renal infarct Umbilical hernia Hypertension Discharge Data Allergies Allergy/AdvReac Type Severity Reaction Status Date / Time No Known Allergies Allergy Verified 10/19/22 18:25 Consultations 10/19/22 19:29 ED Decision to Admit Stat 10/20/22 08:00 Consult General Surgery Routine Consult Nephrology Routine Ordered Studies 10/19/22 15:52 CT abd pelvis IV con only Stat 10/20/22 08:00 US duplex renal artery Routine 10/20/22 10:59 US venous doppler LE BI Routine 10/21/22 09:45 CTA abdomen w con [CT angio abdomen w con] Routine Laboratory Results WBC 12.49 K/ul (4.8-10.8) H 10/21/22 02:28 RBC 4.90 M/uL (4.70-6.10) 10/21/22 02:28 Hgb 14.9 g/dl (14.0-18.0) 10/21/22 02:28 Hct 43.8 % (42.0-52.0) 10/21/22 02:28 MCV 89.4 fL (80.0-100.0) 10/21/22 02:28 MCH 30.4 pg (25.0-34.0) 10/21/22 02:28 MCHC 34.0 g/dL (32.0-36.0) 10/21/22 02:28 RDW Std Deviation 42.1 fL (36.4-46.3) 10/21/22 02:28 RDW Coeff of Noy 12.9 % (11.5-14.5) 10/21/22 02:28 Plt Count 301 K/uL (130-400) 10/21/22 02:28 MPV 9.4 fL (9.4-12.4) 10/21/22 02:28 Immature Gran % (Auto) 0.6 % 10/20/22 03:17 Neut % (Auto) 68.7 % 10/20/22 03:17 Lymph % (Auto) 16.8 % 10/20/22 03:17 [place] % (Auto) 10.8 % 10/20/22 03:17 Eos % (Auto) 2.1 % 10/20/22 03:17 Baso % (Auto) 1.0 % 10/20/22 03:17 Neut # (Auto) 8.68 K/uL (1.40-6.50) H 10/20/22 03:17 Lymph # (Auto) 2.12 K/uL (1.2-3.4) 10/20/22 03:17 [place] # (Auto) 1.36 K/uL (0.11-0.59) H 10/20/22 03:17 Eos # (Auto) 0.27 K/uL (0-0.50) 10/20/22 03:17 Baso # (Auto) 0.13 K/uL (0-0.2) 10/20/22 03:17 Immature Gran # (Auto) 0.08 K/uL (0.01-0.20) 10/20/22 03:17 Stomatocytes 2+ 10/20/22 03:17 Peripher Smr Path Cons Cancelled 10/20/22 11:13 ESR 22 mm/hr (0-20) H 10/20/22 11:13 PT 10.9 Seconds (9.0-12.0) 10/19/22 20:03 INR 1.0 (0.9-1.1) 10/19/22 20:03 APTT 51.3 Seconds (21.0-31.0) H* 10/21/22 02:28 PTT Ratio 1.9 10/21/22 02:28 Sodium 137 mmol/L (136-145) 10/21/22 02:28 Potassium 4.0 mmol/L (3.5-5.1) 10/21/22 02:28 Chloride 105 mmol/L (98-107) 10/21/22 02:28 Carbon Dioxide 26 mmol/L (21-32) 10/21/22 02:28 Anion Gap 6 (3-11) 10/21/22 02:28 BUN 23 mg/dl (6-23) 10/21/22 02:28 Creatinine 0.88 mg/dl (0.6-1.4) 10/21/22 02:28 Est Cr Clr Drug Dosing 95.2 ml/min 10/21/22 02:28 Est GFR ( Amer) 106.0 ml/min 10/21/22 02:28 Est GFR (Non-Af Amer) 91.4 ml/min 10/21/22 02:28 BUN/Creatinine Ratio 26.1 (10-20) H 10/21/22 02:28 Glucose 167 mg/dl (70-99(Fasting)) H 10/21/22 02:28 POC Glucose 132 mg/dl (70-99) H 10/21/22 11:47 Estimat Average Glucose 148 mg/dl 10/20/22 03:17 Hemoglobin A1c 6.8 % (4.5-5.6) H 10/20/22 03:17 Calcium 9.0 mg/dl (8.5-10.1) 10/21/22 02:28 Magnesium 2.3 mg/dl (1.7-2.4) 10/21/22 02:28 Total Bilirubin 0.7 mg/dl (0.2-1.0) 10/19/22 14:35 AST 17 U/L (13-39) 10/19/22 14:35 ALT 20 U/L (7-52) 10/19/22 14:35 Alkaline Phosphatase 49 U/L (34-104) 10/19/22 14:35 Lactate Dehydrogenase 166 U/L (86-244) 10/20/22 11:13 Troponin I High Sens 9.5 pg/ml (0-20) 10/19/22 14:35 Total Protein 8.3 gm/dl (6.0-8.3) 10/19/22 14:35 Albumin 4.7 gm/dl (3.4-5.0) 10/19/22 14:35 Globulin 3.6 gm/dl (2.5-4.0) 10/19/22 14:35 Albumin/Globulin Ratio 1.3 (0.9-2) 10/19/22 14:35 Urine Color Yellow 10/19/22 18:33 Urine Appearance Clear (Clear) 10/19/22 18:33 Urine pH 6.5 (4.5-7.5) 10/19/22 18:33 Ur Specific [place] > 1.045 (1.000-1.030) H 10/19/22 18:33 Urine Protein Negative (Negative) 10/19/22 18:33 Urine Glucose (UA) 3+ (Negative) H 10/19/22 18:33 Urine Ketones Negative (Negative) 10/19/22 18:33 Urine Blood Negative (Negative) 10/19/22 18:33 Urine Nitrite Negative (Negative) 10/19/22 18:33 Urine Bilirubin Negative (Negative) 10/19/22 18:33 Urine Urobilinogen Negative (Negative) 10/19/22 18:33 Ur Leukocyte Esterase Negative (Negative) 10/19/22 18:33 SARS-CoV-2, RNA, NAAT NEGATIVE (NEGATIVE) 10/19/22 19:30 Impressions Abdomen/Pelvis CT 10/19/22 15:[address] WITH IV CONTRAST CT DOSE: 1555.84 mGy.cm HISTORY: hernia TECHNIQUE: Multiaxial CT images of the abdomen and pelvis were performed following the use of intravenous contrast. A dose lowering technique was utilized adhering to the principles of ALARA. COMPARISON STUDY: None. FINDINGS: The lung bases are essentially clear. No pneumoperitoneum. No pneumatosis. 1.5 cm sclerotic focus within the left iliac bone. This is indeterminate but may represent a bone island. Old, healed left posterior rib fractures. There is a moderate-sized fat-containing umbilical hernia. The hernia sac measures 4.9 cm. The hernia neck measures 3.7 cm. The bladder is unremarkable. The prostate gland is mildly enlarged. Cholelithiasis. No gallbl adder wall thickening. The main portal vein is patent. No hepatic masses. Calcification along the periphery of the spleen which may represent old postoperative change. Embolization coils noted. The pancreatic tail. The adrenal glands are unremarkable. The pancreas enhances normally. An IVC filter appears in good position. There are few bilateral renal hypodense lesions with the largest on the left measuring 4 cm. This favors a cyst. Subtle wedge-shaped area of hypoenhancement within the lower pole of the right kidney on image 246. This could represent an area of pyelonephritis or developing renal infarct. The renal arteries and veins appear patent. Normal caliber abdominal aorta. No retroperitoneal lymphadenopathy. No pelvic lymphadenopathy or pelvic free fluid. No bowel wall thickening or obstruction. Normal appendix. IMPRESSION: 1. Moderate size fat-containing umbilical hernia. 2. A subtle wedge-shaped area of hypoenhancement within the lower pole of the right kidney. This could represent a focal area of pyelonephritis versus a developing renal infarct. Recommend correlation with urinalysis. 3. A 1.5 cm indeterminate sclerotic focus within the left iliac bone. This may represent a bone island. 4. Cholelithiasis. 5. Additional findings as described above. ACT 112: Negative or not required by law. Electronically signed by: Gadiel Roman M.D. 10/19/2022 6:11 PM Renal Artery Duplex 10/20/22 08:00 US duplex renal artery CLINICAL HISTORY: Renal infarct. COMPARISON STUDY: CT of the abdomen and pelvis October 19, 2022. TECHNIQUE: Color and duplex Doppler sonography of the renal arteries and abdominal aorta was performed. FINDINGS: This exam is compromised by suboptimal degeneration. Peak systolic velocity within the abdominal aorta was 100 cm/s. The right kidney measures 11.1 cm and the left measures 11.7 cm per there is no hydronephrosis. The ill-defined hypodense focus within the lower pole of the right kidney on CT is not evident by sonography. Left renal cyst is noted. There is no hydronephrosis. Bilateral renal arteries and veins were patent. No elevated velocities were identified within the renal arteries. Peak systolic velocity within the left renal artery was 85 cm/s. Peak systolic velocity within the right renal artery was 90 cm/s. Hepatic steatosis is incidentally noted. IMPRESSION: Exam mildly compromised by suboptimal penetration. However, no sonographic evidence for renal artery stenosis. ACT 112: Negative or not required by law. Electronically signed by: Yovani Rodríguez M.D. 10/20/2022 8:36 AM Venous Doppler Study 10/20/22 10:59 BILATERAL LOWER EXTREMITY VENOUS DOPPLER HISTORY: Leg edema, Rule out DVT COMPARISON STUDY: None. FINDINGS: There is normal compressibility, flow, and augmentation within the bilateral lower extremity deep venous systems. IMPRESSION: No DVT within the right or left lower extremity. ACT 112: Negative or not required by law. Electronically signed by: Gadiel Roman M.D. 10/20/2022 12:34 PM Abdomen CTA 10/21/22 09:45 CT ANGIOGRAPHY OF THE ABDOMEN CLINICAL HISTORY: Renal infarct on prior CT. COMPARISON STUDY: CT of the abdomen and pelvis January 20, 2004 and October 19, 2022. Doppler renal ultrasound October 20, 2022. TECHNIQUE: Arterial phase images of the abdomen were obtained following intravenous injection of 120 cc of Optiray 320 IV. Sagittal and coronal reconstructions were viewed as well as maximal intensity projections on an independent 3-D workstation. Automated exposure control was utilized for the study. A dose lowering technique was utilized adhering to the principles of ALARA. FINDINGS: Groundglass opacities with mosaic attenuation within the lower lungs favor atelectasis. Air-trapping could appear similar. Old left-sided rib fractures are noted. Embolization coils within the splenic artery are noted. There are old posttraumatic/postsurgical findings within the spleen which is small. No pneumatosis, free air or portal venous gas is present. Gallstones within the gallbladder are noted. There is no biliary or pancreatic ductal dilatation. Arterial phase images of the liver, adrenal glands and pancreas are unremarkable. IVC filter is in place. There is a left renal cyst. A 1 cm hypodense lesion within the lower pole of the right kidney also likely reflects a cyst. A subtle wedge-shaped hypodensity within the lower pole of the right kidney is again noted. This measures approximately 2.4 cm. This was shown on CT of October 19, 2022. Conspicuity has slightly decreased although this could be due to to differences in phase of enhancement. This was not evident on earlier CT of January 19, 2014. The caliber of the abdominal aorta is normal. The celiac axis, superior mesenteric artery and inferior mesenteric artery are patent. The bilateral renal arteries are patent. No dissection within the renal arteries. There is no aneurysm. Segmental vessels within the kidneys are suboptimally assessed due to artifact. However, no definite vessel occlusion is identified. IMPRESSION: 1. Redemonstration of a subtle wedge-shaped hypodensity within the lower pole of the right kidney. This remains nonspecific and could reflect a small age indeterminate infarct or pyelonephritis. 2. Patent renal arteries. No dissection or stenosis identified. Segmental vessels suboptimally assessed due to artifact but no vessel occlusion identified. 3. Cholelithiasis. ACT 112: Negative or not required by law. Electronically signed by: Yovani Rodríguez M.D. 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 A subtle wedge-shaped area of hypoenhancement within the lower pole of the right kidney. This could represent a focal area of pyelonephritis versus a developing renal infarct. Recommend correlation with urinalysis. A 1.5 cm indeterminate sclerotic focus within the left iliac bone. This may represent a bone island. Cholelithiasis. -- Renal artery duplex:Exam mildly compromised by suboptimal penetration. However, no sonographic evidence for renal artery stenosis. --Venous Doppler:No DVT within the right or left lower extremity. --ECHO: Grossly normal valvular structure and function. Left ventricle is normal in size. Left ventricle systolic function is normal. EF 60 to 65%. Right ventricle systolic pressure is normal. Left atrial size is normal. Right atrial size is normal --Abd CTA: Redemonstration of a subtle wedge-shaped hypodensity within the lower pole of the right kidney. This remains nonspecific and could reflect a small age indeterminate infarct or pyelonephritis. Patent renal arteries. No dissection or stenosis identified. Segmental vessels suboptimally assessed due to artifact but no vessel occlusion identified. Cholelithiasis. --Fairly normal ESR, normal LDH ---Peripheral smear is remarkable for neutrophilia and monocytosis with reactive features. No evidence of dysplasia or hematolymphoid process is seen. No schistocytes are noted. -- Urine analysis not suggestive of UTI --Patient denies any hematuria, dysuria, fever, chills -- Discussed with radiologist today: No similar lesion noted on CT abdomen from 2003. -- Could not obtain CT from [facility](Called multiple [facility] sites-unable to obtain). Patient unaware of going to [facility] --Appreciate nephrology input --IV heparin discontinued (Discussed with Nephrology on 10/21/22--Can DC Heparin and discharge home, Needs Hemeonch follow up as outpatient) --Continue aspirin 81 mg daily --Needs hypercoagulable work-up and follow-up with hematology as outpatient given H/O IVC filter and currently not on any anticoagulation --Needs follow up with Nephrology upon discharge Umbilical hernia: -- CT abdomen as above Currently asymptomatic Appreciate surgery input Will need follow-up with surgery upon discharge for elective umbilical hernia repair Cholelithiasis Incidental finding on CT Follow-up with surgery as outpatient DM II HbA1c 6.8 Hold p.o. medications Continue insulin while hospitalized Monitor BGs Hypertension: Lisinopril, Lasix on hold Hydralazine as per nephrology Monitor BP Hyperlipidemia: On statin. Morbid obesity: Needs counseling BMI 45 DVT Px: On IV heparin. CODE STATUS Full code Disposition Home Total Time Total Time Spent Total Time Spent (In Minutes): 57 minutes Discharge Plan Discharge Items Patient Disposition: Home - Self-Care Reason For Visit: EMERGENCY ULTRA SOUND, REF BY DOC Discharge Diagnosis: Suspected right renal infarct Umbilical hernia Hypertension Activity: Per Instructions section Exercise/Sports: Wait until after follow-up appointment Non-emergency contact: Primary Care Provider, Specialist and Hair Or Beauty Salon Manager Call non-emergency contact if: you have any medication questions, your symptoms worsen, your pain is concerning for you and you have a fever Follow-up/Referrals: Danny Jung PA-C [Primary Care Provider] - Diet: Carb Consistent or DM2 and Heart Healthy Diet Texture: Easy to Chew Addtl Attending Provider Instructions: Follow-up with your primary care physician Danny Jung PA-C in 1 week Follow-up with your hydro station operator in 2 weeks for further management of blood pressure and possible renal infarct Follow-up with your general surgeon Dr. Carlo Nicole for an elective umbilical hernia repair. --Follow-up with your wallpaper hanger (to be referred by your primary care physician) for hypercoagulable work-up and assessment regarding need for anticoagulation given history of IVC filter placement. Seek immediate medical attention if your symptoms reoccur or worsen Please take all medications as instructed on discharge list below. Please call if you have any questions or problems. You can reach a [facility] hospitalist on duty at [facility] 24 hours a day by calling [phone] Pending Studies at Discharge: No Stand-Alone Forms: My [facility], Smoking Cessation Medications and DC Order Prescriptions: Continued multivitamin Tablet 1 tab PO DAILY atorvastatin 40 mg tablet 40 mg PO HS glipizide 10 mg tablet extended release 24hr 20 mg PO DAILY lisinopril 20 mg tablet 20 mg PO DAILY aspirin 81 mg Tablet,Delayed Release (Dr/Ec) 81 mg PO DAILY metformin 1,000 mg tablet 1,000 mg PO BID cyanocobalamin (vitamin B-12) [Vitamin B-12] 1,000 mcg Tablet, Sublingual 1,000 mcg SUBLINGUAL DAILY furosemide 20 mg tablet 20 mg PO DAILY polyethylene glycol 3350 [Miralax] 17 gram/dose Powder 17 g PO DAILY PRN (Reason: Constipation) Tradjenta 5 mg tablet 5 mg PO DAILY Jardiance 25 mg tablet 25 mg PO DAILY Discharge Orders: Discharge Order (Routine); Ordered 10/21/22 Ordered By: Graham Crump Admission Data Admit Date/Time: 10/19/22 20:35 Attending Provider: Graham Crump Admit Provider: Graham Crump Primary Care Provider: Danny Jung Other Providers: Tashi Samaniego ; Kemar Dang ; Valentín Browne Haley B. ; Marya Ponce ; Jack Romano ; Andre Mota ; Nya Magdaleno ; Dorita Vega ; Tree Moreno Jr ; Sarah Beltre ; Luisito Pollock ; Maritza Rodriguez ; Robert Andres
== END 2022-10-21 15:07 | disposition home or self-care (01) | DRG 699 ==
LOC: ED 14:19 → EDINP 20:35 → 4W 10-20 16:51